=== PATIENT | female | born 1950 | race Caucasian/White ===

== ENCOUNTER 2016-10-13 20:39 | Inpatient (IN) | payer OTHER ==
[~2016-10-13] VITALS: Ht 165.1 cm; Wt 97.0 kg
--- NOTE | 2016-10-13 22:18 | NUR ---
PT PRESENTS TO ED WITH CHIEF COMPLAINT OF EPIGASTRIC PAIN SINCE 1800. PT STATES THAT SHE HAS HX OF HERNIA IN THE RLQ AND THAT SHE FEELS THE PAIN IS UNRELATED TO HER HERNIA. PT STATES THAT HER PAIN IS IN THE EPIGASTRIC REGION 9/10 AND SHARP, SPASMING/PULSATING IN QUALITY. PT DENIES ANY NAUSEA, VOMITING, CONSTIPATION OR DIARERHA. PT DENEIS ANY CHEST PAIN OR SOB. PT BREATHING IS UNEVEN DUE TO PAIN BUT PT DENIES SOB. PT DENIES ANY DIZZINESS OF SYNCOPE. PT DENEIS ANY UTI SYMPTOMS. PT STABLE. AA&OX4. NO ACUTE DISTRESS. FAMILY AT BEDSIDE. CALL [facility]IGHT [facility] REACH. WILL CONTINUE TO [facility].
[2016-10-13 22:41] LABS: BASOPHIL % 0.3 % (0-2); PLATELET COUNT 234 x10^3mcL (130-400)
[2016-10-13 22:42] LABS: RED CELL DISTRIBUTION WIDTH 14.9 % (11.5-14.5)
[2016-10-13 22:56] LABS: CALCIUM 9.6 mg/dL (8.5-10.1); CARBON DIOXIDE 27.5 mmol/L (21-32); POTASSIUM SERUM 4.3 mmol/L (3.5-5.1)
--- NOTE | 2016-10-13 22:58 | NUR ---
PT UNABLE TO PROVIDE URINE AT THIS TIME. AWARE.
[2016-10-13 23:00] LABS: ALBUMIN 4.3 g/dL (3.4-5.0); BILIRUBIN TOTAL 0.47 mg/dL (0.20-1.00); TOTAL PROTEIN, SERUM 7.2 g/dL (6.4-8.2)
[2016-10-13] MEDS ORDERED: PRA40 PO (23:45)
[2016-10-13] MEDS ORDERED: LEVOTHYROXIN0.125 M2 PO (23:45)
[2016-10-13] MEDS ORDERED: ZESTRIL20 MG PO (23:45)
--- NOTE | 2016-10-14 00:15 | NUR ---
CALLED REPROT TO GABRIEL ULLOA TO ASSUME CARE OF PT.
--- NOTE | 2016-10-14 00:30 | NUR ---
REPORT TAKEN FROM ER NURSE. ALL CARE ENDORSSED. PT IS GOING TO ROOM 238-B
--- NOTE | 2016-10-14 00:45 | NUR ---
RECEIVED PT RESTING IN BED, AAOX4 WITH NO C/O PAIN AT THIS TIME. VS DONE AND MONITOR APPLIED. PRIMARY RN AT BEDSIDE TO RESUME IVF TO LAC. BREATH SOUNDS CLEAR BILATERALLY. ABDOMEN SOFT WITH ACTIVE BOWEL SOUNDS. PULSES PRESENT WITH NO EDEMA NOTED. AT BEDSIDE. CALL LIGHT WITHIN REACH.
[2016-10-14 01:05] VITALS: BP 128/48
[2016-10-14 01:12] LABS: CHOLESTEROL/HDL RATIO 2.9; PHOSPHOROUS 3.8 mg/dL (2.5-4.9)
[2016-10-14 01:15] LABS: T3 TOTAL 1.14 ng/mL
[2016-10-14 01:16] LABS: FREE T4 1.61 ng/dL (0.76-1.46)
[2016-10-14 01:17] VITALS: Ht 165.1 cm; Wt 97.0 kg
[2016-10-14 01:21] LABS: FREE THYROXINE INDEX 4.6 ug/dL (1.4-4.5); T4(THYROXINE) 13.9 ug/dL (4.7-13.3)
--- NOTE | 2016-10-14 01:33 | NUR ---
PT IS RESTING IN BED A/O X4 DENIES ABD PAIN AT TIME. PT WAS MEDICATED FOR PAIN IN ER. RESP IS EVEN AND UNLABORED. RA. BOWEL SOUND ACIVE X2 UPPER Q. IV TO LAC INFUSE WITH NS AT 140ML/HR. PT IS ABBULATE. HUSBND AT PT BEDSIDE. SAFETY IN PLACE. CALL LIGHT WITHIN REACH. WILL CONTINUE TO MONITOR.
--- NOTE | 2016-10-14 01:51 | NUR ---
PT REFUSED NGT, PAGED DR BROWN TO MAKE HIM AWARED.
--- NOTE | 2016-10-14 01:55 | NUR ---
DR BROWN IS AWARED THAT PT REFUSED NGT.
--- NOTE | 2016-10-14 02:03 | NUR ---
DR MONTANA IN THE UNITS, ADMIT I UPDATED HIM ABOUT PT CONDITION.
--- NOTE | 2016-10-14 02:25 | NUR ---
DR MONTANA IN PT DEBSIDE ASSESS PT.PT AGREED TO INSERT NGT AGAIN.
--- NOTE | 2016-10-14 03:00 | NUR ---
MEDICATED PT WITH MORPHINE 2MG IVP. AND RETRY TO INSERT NGT. PT STARTED SCREEMING AND CRYING, AND REFUSED IT. WILL CALLED DR MONTANA AND MAKE HIM AWARE.
--- NOTE | 2016-10-14 03:11 | NUR ---
DR MONTANA IS AWARED OF PT REFUSING NGT INSERTION.
[2016-10-14 03:43] LABS: microscopic required? YES; urine erythrocyte TRACE (NEGATIVE)
[2016-10-14 03:48] LABS: AMPHETAMINE QUAL UR NONE DETECTED (NEG <=1000)
--- NOTE | 2016-10-14 06:00 | NUR ---
CXR IS COMPLETED.
[2016-10-14 06:04] VITALS: BP 128/58
--- NOTE | 2016-10-14 06:15 | NUR ---
N0 SIGNIFICANT CHANGES ON PT CONDITION. ALL PT NEEDS ATTENDED. PT IS IN A STABLE CONDITION. NPO AT TIME. WILL ENDORSE THE CARE TO DAY NURSE.
--- NOTE | 2016-10-14 06:54 | NUR ---
MG 1.[address] MONTANA AND MADE HIM AWARE.
--- NOTE | 2016-10-14 06:59 | NUR ---
DR MONTANA AT PT BEDSIDE ASSESS PT. AND HE IS AWARED ABOUT PT LAB.
--- NOTE | 2016-10-14 07:23 | NUR ---
REPORT GIVEN TO PARTHA AT PT BEDSIDE, ALL CARE ENDORSSED.
--- NOTE | 2016-10-14 07:30 | NUR ---
PATIENT IS IN BED, AWAKE ALERT AND ORIENTED. DENIES ANY ABD PAIN OR N/V. IVF INFUSING WELL TO LEFT A/C. RESP EVEN AND UNLABORED LUNGS CLEAR ON ROOM AIR. ABD SOFT AND ROUND, BOWEL SOUNDS ACTIVE IN ALL 4 DUADS. VOIDING WELL, BRP AMBULATES WITH GOOD STEADY GAIT. NO EDEMA NOTED, PULSES PALABLE. SCD'S IN PLACE. TELE 19 SR HR 65. NO ACUTE DISTRESS NOTED. NPO AT THIS TIME FOR CONSULT WITH DR SHUKLA.
--- NOTE | 2016-10-14 08:10 | NUR ---
DR CABRERA AND MEDICAL TEAM INTO SEE PATIENT AND DISCUSS PLAN OF CARE.
[2016-10-14 09:30] VITALS: BP 121/64
--- NOTE | 2016-10-14 11:46 | NUR ---
PATIENT DOWN TO OR VIA [facility] AT THIS TIME. PATIENT'S ACCOMPANIED HER.
[2016-10-14 14:00] VITALS: BP 129/68
--- NOTE | 2016-10-14 14:00 | NUR ---
RECEIVED PT BACK FROM RECOVERY ROOM. AAOX4. NO S/S OF PAIN AND SOB. ON 3LPM/NC, O2 SAT=95%. W/ DRESSING ON THE ABDOMEN, CDI. W/ ADBOMINAL BINDER. W/ JOSE F-ROSENBERG DRAINING W/ SANGUINEOUS OUTPUT. EZ=609/68, MO=56, TEMP=97.5, RR=18. AT BEDSIDE. SCD'S ON BLE. CALL LIGHT ON REACH.
--- NOTE | 2016-10-14 14:56 | NUR ---
PATIENT IS IN BED WITH FAMILY MEMBERS AT BEDSIDE. ECHO IN PROGRESS. PATIENT ALERT AND ORIENTED. DENIES ANY PAIN AT THIS TIME. IVF INFUSING WELL.WILL CONTINUE TO MONITOR.
--- NOTE | 2016-10-14 15:48 | NUR ---
PATIENT REMAINS IN BED WITH O2 ON AT 2L VIA N/C. PATIENT INSTRUCTED ON THE USE OF I.S. ANA DRAIN EMPTIED 60ML OF SEROUS LIQUID AT THIS TIME. CONTINUES TO DENY ANY PAIN OR DISCOMFORT. WILL CONTINUE TO MONITOR.
[2016-10-14 17:27] VITALS: BP 119/49
--- NOTE | 2016-10-14 17:35 | NUR ---
PATIENT ATTEMPTED TO GET OOB TO GO TO THE BATHROOM. C/O ABD SURGICAL AREA PAIN 8/10 ON THE PAIN SCALE. PATIENT REQUESTED PAIN MED BE GIVEN BEFORE GETTING OOB. MEDICATED WITH MS 2MG IV BY YVAN ULLOA ORDERED. WILL MONITOR FOR RELIEF. FAMILY MEMBERS AT BEDSIDE. PATIENT USING I.S. INSTRUCTED. ABD BINDER REMAINS IN PLACE.
--- NOTE | 2016-10-14 17:55 | NUR ---
I HAVE REVIEWED THE DATA COLLECTION BY RIYA (NAME): PARTHA MARTINEZ ENTERED ON (DATE/TIME): 10/14/16 I CONCUR WITH THE DATA AND ANY EXCEPTIONS OR COMMENTS ARE LISTED BELOW:
--- NOTE | 2016-10-14 18:43 | NUR ---
PATIENT AMBULATED WITH MINIMAL ASSIST TO THE BATHROOM. GAIT SLOW BUT STEADY. VOIDED WELL. TOLERATED CLEAR LIQUID DIET. IVF INFUSING. PATIENT BACK IN BED SCD'S IN PLACE. WILL CONTINUE TO [facility].
--- NOTE | 2016-10-14 20:00 | NUR ---
RECEIVED PT IN BED, ALERT AND ORIENTED. DENIES HEADACHE/DIZZINESS. RESP. EVEN AND UNLABORED. [address], LUNGS SOUNDS CLEAR BILAT. NO DISTRESS NOTED. AFEBRILE AND VITAL SIGNS STABLE. SB/SR ON THE MONITOR, DENIES CHEST PAIN OR PRESSURE. ABD.DRESSING DRY AND INTACT, ABD. BINDER IN PLACE. ANA DRAIN INTACT AND DRAINING BLOODY OUTPUT. DENIES PAIN OR ANY DISCOMFORT AT THIS TIME. IVF, NS AT 140ML/HR, INFUSING VIA LT AC, SITE CLEAR.ADARSH. PO. WELL. NO N/V NOTED.PT STATES, SHE IS PASSING GAS.AMBULATORY. ASSISTED WITH HS CARE. CALL LIGHT WITHIN REACH. WILL CONTINUE TO MONITOR.
[2016-10-14 22:08] VITALS: BP 117/60
--- NOTE | 2016-10-15 00:31 | NUR ---
IV SITE CHANGED. NEW SITE RESTARTED ON LT HAND WITH #22G ANGIO. IVF INFUSING WELL AT THIS TIME. PT SLEEPING QUIETLY. EASILY AROUSABLE. WILL CONTINUE TO MONITOR.
--- NOTE | 2016-10-15 04:26 | NUR ---
COMPLAINED OF ABD. SURGICAL SITE PAIN, 5/10, MEDCATED WITH NORCO 1TAB PO ORDERED. WILL CONTINUE TO MONITOR.
[2016-10-15 06:22] LABS: BASOPHIL % 0.2 % (0-2); PLATELET COUNT 173 x10^3mcL (130-400)
[2016-10-15 06:29] VITALS: BP 96/42
--- NOTE | 2016-10-15 06:33 | NUR ---
AFEBRILE AND VITAL SIGNS STABLE. RESP. EVEN AND UNLABORED. ON ROOM AIR, NO DISTRESS NOTED. ABD. DRESSING DRY AND INTACT. ABD. BINDER IN PLACE. ANA DRAIN INTACT AND DRAINING SER-SANG. DRAINAGE. AMBULATES TO THE BATHROOM WITH MIN. ASSIST. VOIDING FREELY. KET COMFORTABLE. IVF INTACT AND INFUSING WELL, SITE CLEAR. SR ON THE MONITOR, DENIES CP OR ANY DISCOMFORT. WILL ENDORSE TO INCOMING NURSE.
[2016-10-15 06:43] LABS: CALCIUM 8.4 mg/dL (8.5-10.1); CARBON DIOXIDE 26.1 mmol/L (21-32); CHLORIDE SERUM 110 mmol/L (98-107); CREATININE SERUM 0.8 mg/dL (0.6-1.0); GFR1 > 60 mL/min; GLUCOSE SERUM 122 mg/dL (74-106); MAGNESIUM 1.8 mg/dL (1.8-2.4); PHOSPHOROUS 3.9 mg/dL (2.5-4.9); POTASSIUM SERUM 4.3 mmol/L (3.5-5.1); SODIUM SERUM 143 mmol/L (136-145)
[2016-10-15 06:45] LABS: ALBUMIN 2.6 g/dL (3.4-5.0)
[2016-10-15 06:57] LABS: RED CELL DISTRIBUTION WIDTH 15.3 % (11.5-14.5)
--- NOTE | 2016-10-15 07:30 | NUR ---
RECIEVED REPORT FROM NOC RN, PT IN BED SITTING UPRIGHT ASSESMENT MADE PT IS AOX4 HR WNL, SCDS IN PLACE CAP REFILL <3 RR EVEN AND UNLABORED LUNGS SOUNDS CLEAR, ABODMEN IS COVERED WITH ABD BINDER P HAS NOT HAD A BM , STATED PASSING GAS AND ABLE TO AMBULATED TO THE BATHROOM AND VOID, SKIN IS WARM AND DRY TO TOUCH, DENIES PAIN, IV PATHENT AND INTACT CALL LIGHT WITHIN REACH, WILL CONTINUE TO MONITOR FOR CHANGES
[2016-10-15] MEDS ORDERED: NOR10T PO (13:38)
[2016-10-15] MEDS ORDERED: COL250 PO (13:38)
[2016-10-15 13:59] VITALS: BP 96/42
--- NOTE | 2016-10-15 14:13 | NUR ---
PT IN BED SITTING FOWLERS IN BED, SCDS IN PLACE , FAMILY IS PRESENT, DENIES PAIN. IV PATENT AND INTACT, CALL [facility] WITHIN REACH. WILL CONTINUE TO MONITOR FOR CHANGES.
[2016-10-15] MEDS ORDERED: LAC PO (15:30)
[2016-10-15] MEDS ORDERED: KEFLEX500 M1 PO (15:30)
--- NOTE | 2016-10-15 16:30 | NUR ---
PT'S CONDITION STABLE,VITALS' NORMAL,ABD INSC PAIN AT MINIMIAL STATED, ABD DRESSING STILL CLEAN AND INTACT,JPRAT SUCTION BULD DRAINED 10ML OF RED BLOOD,ABD BINDER ON. DC INSTRUCTIONS RENDERED PARTICULARLY DRAINING TECHNIQUE OF JPRATT SUCTION BULB AND IMPORTANCE OF KEEPING DRESSING CLEAN,AND TO FOLLOW UP W/ PCP AND SX DR ON SCHED APPT DATE. TELE DC'D,[place]OCK DC'D,PRESCRIPTION NOTE ENDORSED. WHEELED DOWN.
--- NOTE | 2016-10-15 17:24 | NUR ---
PT DISCHARGED, ACCOMPANIED BY , WHEELED TO LOBBY NO PAIN OR DISTRESS NOTED.
== END 2016-10-15 17:24 | disposition home or self-care (01) | DRG 335 ==
LOC: ED 20:39 → DU 23:45 → MU 23:45 → DU 10-14 00:37 → MU 10-15 07:03
PROVIDERS: Emergency Medicine; Surgery; ADMIT Family Medicine
PROC: 0DNB0ZZ Release Ileum, Open Approach (ICD-10-PCS; 2016-10-14)
PROC: 0WUF0JZ Supplement Abdominal Wall with Synthetic Substitute, Open Approach (ICD-10-PCS; principal; 2016-10-14 12:00)
DX: K43.0 Incisional hernia with obstruction, without gangrene (principal); E43 Unspecified severe protein-calorie malnutrition; K57.30 Diverticulosis of large intestine without perforation or abscess without bleeding; K66.0 Peritoneal adhesions (postprocedural) (postinfection); I10 Essential (primary) hypertension; R31.29 Other microscopic hematuria; E03.9 Hypothyroidism, unspecified; E78.5 Hyperlipidemia, unspecified; E66.9 Obesity, unspecified; Z68.35 Body mass index [BMI] 35.0-35.9, adult; Z96.643 Presence of artificial hip joint, bilateral
CPT/HCPCS: 80307; 83880; 84439; C1781; J0500; J0690; J1170; J2270; J2405; J2704; J2710; J3010; J3490; J7030; J7120; Q0092

== ENCOUNTER 2019-09-14 13:44 | Observation (INO) | payer OTHER ==
[~2019-09-14] VITALS: Ht 162.6 cm; Wt 92.1 kg
[~2019-09-14 13:44] MED LIST: COL250 PO; KEFLEX500 M1 PO; LAC PO; LEVOTHYROXIN0.125 M2 PO; NOR10T PO; PRA40 PO; ZESTRIL20 MG PO
[2019-09-14 14:33] LABS: BASOPHIL % 0.5 % (0-2); PLATELET COUNT 203 x10^3mcL (130-400); RED CELL DISTRIBUTION WIDTH 15.1 % (11.5-14.5)
[2019-09-14 15:02] LABS: CALCIUM 9.5 mg/dL (8.5-10.1); CARBON DIOXIDE 27.2 mmol/L (21-32); POTASSIUM SERUM 4.3 mmol/L (3.5-5.1)
[2019-09-14 15:07] LABS: ALBUMIN 3.7 g/dL (3.4-5.0); BILIRUBIN TOTAL 0.4 mg/dL (0.20-1.00); TOTAL PROTEIN, SERUM 7.2 g/dL (6.4-8.2)
[2019-09-14 17:48] VITALS: BP 116/59
[2019-09-14 17:58] VITALS: Ht 162.6 cm; Wt 92.1 kg
[2019-09-14] MEDS ORDERED: ULTRAM50 MG PO ×2 (18:05→18:06)
[2019-09-14] MEDS ORDERED: METOPROLOL SUCC25 M2 PO (18:36)
[2019-09-14 20:09] VITALS: BP 98/56
[2019-09-15 05:37] VITALS: BP 110/62
[2019-09-15 07:47] VITALS: BP 111/65
[2019-09-15 12:36] VITALS: BP 123/46
[2019-09-15] MEDS ORDERED: ELIQUIS5 MG PO (13:43)
[2019-09-15] MEDS ORDERED: DILTIAZEM HCL60 M1 PO (13:45)
[2019-09-15 14:46] VITALS: BP 110/62
== END 2019-09-15 16:24 | disposition home or self-care (01) ==
LOC: ED 13:44 → DU 15:28
PROVIDERS: Emergency Medicine; ADMIT Hospitalist
DX: I48.91 Unspecified atrial fibrillation (principal); I10 Essential (primary) hypertension; E03.9 Hypothyroidism, unspecified; E78.5 Hyperlipidemia, unspecified; R01.1 Cardiac murmur, unspecified; M19.90 Unspecified osteoarthritis, unspecified site
CPT/HCPCS: 83880; G0378; J3490; J7060; Q0092